=== PATIENT | female | born 1990 | race African-American/Black ===

== ENCOUNTER → 2023-10-06 | Outpatient (REF) | payer OTHER ==
[2023-10-06 18:43] LABS: BASO % 0.8 % (0.0-1.0); EOS # 0.1 10^3/uL (0.0-0.5); EOS % 1.8 % (0.0-3.0); HEMATOCRIT 39.7 % (36.0-47.0); HEMOGLOBIN 12.6 g/dl (12.0-15.5); LYMPH % 52.2 % (24.0-44.0); MEAN CORPUSCULAR HEMOGLOBIN 28.6 pg (27.0-33.0); MEAN CORPUSCULAR HGB CONC 31.7 g/dl (32.0-36.5); MONO # 0.3 10^3/uL (0.0-0.8); MONO % 7.6 % (2.0-8.0); NEUTROPHILS # 1.4 10^3/uL (1.5-8.5); NEUTROPHILS % 37.6 % (36.0-66.0); PLATELET COUNT, AUTOMATED 186 10^3/uL (150-450); RED BLOOD COUNT 4.41 10^6/uL (4.00-5.40); WHITE BLOOD COUNT 3.8 10^3/uL (4.0-10.0)
[2023-10-06 18:49] LABS: IRON (FE) 117 UG/DL (50-170); PERCENT SATURATION 33.1 % (13.2-45.0); TOTAL IRON BINDING CAPACITY 354 UG/DL (250-425)
[2023-10-06 18:50] LABS: ALBUMIN 3.9 G/DL (3.2-5.2); ALKALINE PHOSPHATASE 82 U/L (46-116); ALT/SGPT 20 U/L (7.0-40); AST/SGOT 14 U/L (<34); BILIRUBIN,TOTAL 0.5 MG/DL (0.3-1.2); BLOOD UREA NITROGEN 8 MG/DL (9-23); CALCIUM LEVEL 9.3 MG/DL (8.5-10.1); CARBON DIOXIDE LEVEL 26 MMOL/L (20-31); CHLORIDE LEVEL 104 MMOL/L (98-107); CHOLESTEROL LEVEL 247 MG/DL (<200); CHOLESTEROL RISK RATIO 3.46 (<5); CREATININE FOR GFR 0.68 MG/DL (0.55-1.30); FERRITIN 33.5 NG/ML (7.3-270.7); GLOMERULAR FILTRATION RATE > 60.0 (>60); GLUCOSE, FASTING 89 MG/DL (60-100); HDL CHOLESTEROL 71.3 MG/DL (>40); LDL CHOLESTEROL 159.1 MG/DL (<100); NON-HDL-C 175.7 MG/DL; SODIUM LEVEL 137 MMOL/L (136-145); THYROID STIMULATING HORMONE 0.635 uIU/ML (0.55-4.78); TOTAL 25(OH) VITAMIN D 23.4 NG/ML (20.0-100.0); TOTAL PROTEIN 7.4 G/DL (5.7-8.2); TRIGLYCERIDES LEVEL 83 MG/DL (<150)
[2023-10-06 19:14] LABS: HEMOGLOBIN A1c 5.6 % (4.0-6.0)
== END ==
LOC: M LAB REF 16:28
PROVIDERS: ATTEND Physician Assistant
DX: E55.9 Vitamin D deficiency, unspecified (principal); D64.9 Anemia, unspecified; Z13.6 Encounter for screening for cardiovascular disorders; Z11.9 Encounter for screening for infectious and parasitic diseases, unspecified; Z86.32 Personal history of gestational diabetes

== ENCOUNTER → 2023-10-19 | Outpatient (REF) | payer OTHER | LOC: M LAB REF 12:19 | PROVIDERS: ATTEND Physician Assistant | DX: R30.0 Dysuria (principal) ==

== ENCOUNTER → 2023-11-09 | Outpatient (REF) | payer OTHER ==
[2023-11-09 16:51] LABS: BASO % 0.7 % (0.0-1.0); EOS % 0.9 % (0.0-3.0); HEMATOCRIT 37.7 % (36.0-47.0); HEMOGLOBIN 12.1 g/dl (12.0-15.5); LYMPH % 47.1 % (24.0-44.0); MEAN CORPUSCULAR HEMOGLOBIN 28.7 pg (27.0-33.0); MEAN CORPUSCULAR HGB CONC 32.1 g/dl (32.0-36.5); MEAN CORPUSCULAR VOLUME 89.3 fl (80.0-96.0); MONO # 0.3 10^3/uL (0.0-0.8); MONO % 7.8 % (2.0-8.0); NEUTROPHILS # 1.9 10^3/uL (1.5-8.5); NEUTROPHILS % 43.5 % (36.0-66.0); PLATELET COUNT, AUTOMATED 172 10^3/uL (150-450); RED BLOOD COUNT 4.22 10^6/uL (4.00-5.40); WHITE BLOOD COUNT 4.3 10^3/uL (4.0-10.0)
[2023-11-09 17:18] LABS: MAGNESIUM LEVEL 1.9 MG/DL (1.8-2.4)
[2023-11-09 17:24] LABS: FOLATE 21.93 NG/ML (>5.4)
== END ==
LOC: M LAB REF 16:26
PROVIDERS: ATTEND Physician Assistant
DX: D72.819 Decreased white blood cell count, unspecified (principal); M79.652 Pain in left thigh

== ENCOUNTER → 2024-02-14 | Outpatient (REF) | payer OTHER ==
[2024-02-17 12:48] LABS: HPV APTIMA Not Detected (Not Detected)
== END ==
LOC: M LAB REF 12:58
PROVIDERS: ATTEND Physician Assistant
DX: Z12.4 Encounter for screening for malignant neoplasm of cervix (principal)

== ENCOUNTER → 2024-04-23 | Outpatient (CLI) | payer OTHER | LOC: M RAD 08:55 | PROVIDERS: ATTEND Physician Assistant | DX: M79.652 Pain in left thigh (principal) ==

== ENCOUNTER → 2024-09-12 | Outpatient (REF) | payer MEDICAID, OTHER ==
[2024-09-12 13:20] LABS: CALCIUM LEVEL 8.6 MG/DL (8.5-10.1); CARBON DIOXIDE LEVEL 26 MMOL/L (20-31); CHLORIDE LEVEL 102 MMOL/L (98-107); CHOLESTEROL LEVEL 221 MG/DL (<200); CHOLESTEROL RISK RATIO 2.91 (<5); CREATININE FOR GFR 0.79 MG/DL (0.55-1.30); GLOMERULAR FILTRATION RATE > 90.0 (>60); LDL CHOLESTEROL 134.1 MG/DL (<100); NON-HDL-C 145.1 MG/DL; POTASSIUM SERUM 4.4 MMOL/L (3.5-5.1); SODIUM LEVEL 139 MMOL/L (136-145); TRIGLYCERIDES LEVEL 55 MG/DL (<150)
[2024-09-12 13:27] LABS: FREE T4 0.86 NG/DL (0.89-1.76)
[2024-09-12 13:30] LABS: LUTEINIZING HORMONE 2.5 mIU/ML
[2024-09-12 13:32] LABS: TOTAL 25(OH) VITAMIN D 32.8 NG/ML (20.0-100.0)
[2024-09-12 13:34] LABS: ESTIMATED AVERAGE GLUCOSE 114.0 MG/DL (60-110)
[2024-09-17 17:23] LABS: TESTOSTERONE FREE (DIRECT) 2.1 pg/mL (0.1-6.4); TESTOSTERONE TOTAL FOR T&D 29.0 ng/dL (2-45)
== END ==
LOC: M LAB REF 12:09
PROVIDERS: ATTEND Physician Assistant
DX: L67.8 Other hair color and hair shaft abnormalities (principal); E78.2 Mixed hyperlipidemia; E55.9 Vitamin D deficiency, unspecified

== ENCOUNTER → 2025-02-14 | Outpatient (REF) | payer OTHER ==
[2025-02-14 13:47] LABS: PLATELET COUNT, AUTOMATED 181 10^3/uL (150-450)
[2025-02-14 13:53] LABS: FREE T4 1.15 NG/DL (0.89-1.76)
== END ==
LOC: M LAB REF 12:56
PROVIDERS: ATTEND Student in an Organized Health Care Education/Training Program
DX: R79.89 Other specified abnormal findings of blood chemistry (principal); Z32.01 Encounter for pregnancy test, result positive